=== PATIENT | female | born 1995 | race Hispanic/Latino ===

== ENCOUNTER 2018-01-21 23:53 | Emergency (ER) | payer MEDICAID ==
[2018-01-22] MEDS ORDERED: DiphenhydrAMINE HCL 25 MG/10 ML ELIXIR UDCUP ONE (00:33)
[2018-01-22] MEDS ORDERED: METOCLOPRAMIDE 10 MG TABLET ONE (00:34)
== END 2018-01-22 01:39 | disposition home or self-care (01) ==
LOC: EDH 23:53
DX: O9A.212 Injury, poisoning and certain other consequences of external causes complicating pregnancy, second trimester (principal); S09.8XXA Other specified injuries of head, initial encounter; J30.9 Allergic rhinitis, unspecified; Z3A.15 15 weeks gestation of pregnancy; W22.8XXA Striking against or struck by other objects, initial encounter; Y93.89 Activity, other specified; Y92.89 Other specified places as the place of occurrence of the external cause; Y99.8 Other external cause status
CPT/HCPCS: 70450